=== PATIENT | male | born 1970 | race Caucasian/White ===

== ENCOUNTER 2018-10-30 20:19 | Emergency (ER) | payer BC ==
[~2018-10-30] VITALS: Ht 180.3 cm; Wt 95.5 kg
[2018-10-30] MEDS ORDERED: TAGAMET HB200 M1 PO (20:29)
[2018-10-30] MEDS ORDERED: WELLBUTRIN XL300 M1 PO (20:29)
[2018-10-30] MEDS ORDERED: SPIRIVA RE2.5 MCG/Ac IH (20:29)
[2018-10-30] MEDS ORDERED: PROAIR HFA0.09 MG/AC IH (20:30)
[2018-10-30] MEDS ORDERED: ADULT ASPIRIN81 MG PO (20:30)
[2018-10-30] MEDS ORDERED: IPRATROPIUM BROM3 M1 IH (20:30)
[2018-10-30] MEDS ORDERED: SINGULAIR PO (20:30)
[2018-10-30] MEDS ORDERED: AZELASTINE205.5 MCG1 NS (20:31)
[2018-10-30] MEDS ORDERED: ADVAIR DISKUS1 DS2 IH (20:58)
[2018-10-30 21:24] LABS: BASO # 0.1 (0.02-0.10); EOS # 0.3 (0.04-0.40); HEMATOCRIT 41.1 % (42.0-52.0); HEMOGLOBIN 14.4 g/dL (13.5-18.0); MEAN CELL VOLUME 82 fl (78-100); MEAN CORPUSCULAR HEMOGLOBIN 29 pg (27-31); MEAN CORPUSCULAR HGB CONC 35 g/dL (33-37); MEAN PLATELET VOLUME 8.7 fl (7.4-10.4); MONO # 0.3 (0.20-0.80); NEU # 3.1 (1.40-6.50); PLATELET COUNT 321 K/mm3 (130-400); RED CELL DISTRIBUTION WIDTH 12.7 % (11.5-14.5); WHITE BLOOD COUNT 4.8 K/mm3 (4.8-10.8)
[2018-10-30 21:25] LABS: EOS % 5.3 % (0.0-4.0)
[2018-10-30 21:56] VITALS: BP 121/73
== END 2018-10-30 21:56 | disposition home or self-care (01) ==
LOC: ED 20:19
PROVIDERS: Family Medicine
DX: J45.901 Unspecified asthma with (acute) exacerbation (principal); J30.2 Other seasonal allergic rhinitis; F32.9 Major depressive disorder, single episode, unspecified; R00.1 Bradycardia, unspecified; Z79.82 Long term (current) use of aspirin; Z95.0 Presence of cardiac pacemaker